=== PATIENT | female | born 1995 | race Caucasian/White ===

== ENCOUNTER → 2025-02-09 | Outpatient (CLI) | payer OTHER ==
--- NOTE | 2025-02-09 11:32 | MM ---
Reason for Exam: Clinical finding. Tissue Density: The breasts are extremely dense, which lowers the sensitivity of mammography. Findings: Analyzed By CAD. No evidence of suspicious mass, architectural distortion or microcalcifications. Benign-appearing lymph nodes in the right axilla. Overall Assessment: Benign, BI-RAD 2 Management: Screening Mammogram of both breasts at age 40. . Results were given to the patient verbally at the time of exam. Patient should continue monthly self-breast exams. A clinical breast exam by your physician is recommended on an annual basis. This exam should not preclude additional follow-up of suspicious palpable abnormalities. Note on Nicolasa scores and lifetime risk: 1. A Nicolasa score greater than 3% is considered moderate risk. If this is the case, consider specialist referral to assess eligibility for a risk reducing agent. 2. If overall lifetime risk for the development of breast cancer is 20% or higher, the patient may qualify for future screening with alternating mammogram and breast MRI. [facility], , 02/09/2025 11:29 AM. Electronically signed and approved by: Rogers Brambila M.D. Radiolog[facility]
== END | disposition home or self-care (01) ==
LOC: RADMAMWWP 11:06
PROVIDERS: ATTEND Family Medicine
DX: R92.343 Mammographic extreme density, bilateral breasts (principal); N63.10 Unspecified lump in the right breast, unspecified quadrant; N63.20 Unspecified lump in the left breast, unspecified quadrant
CPT/HCPCS: 77066; G0279; 77062